=== PATIENT | female | born 1945 | race Caucasian/White ===

== ENCOUNTER 2021-08-07 09:43 | Emergency (ER) | payer MEDICARE, OTHER ==
[~2021-08-07] VITALS: Ht 162.6 cm; Wt 59.0 kg
[2021-08-07 10:00] VITALS: BP 109/67
[2021-08-07 10:51] LABS: Basophils # (auto) 0.1 10 ^3/uL (0-0.2); Basophils % (auto) 0.5 % (0.0-2.0); Eosinophils # (auto) 0.1 10 ^3/uL (0-0.8); Eosinophils % (auto) 0.6 % (0.0-7.0); Hematocrit 40.4 % (36.0-46.0); Hemoglobin 13.4 g/dL (12.2-16.2); Lymphocytes # (auto) 1.8 10 ^3/uL (0.4-5.4); Lymphocytes % (auto) 16.1 % (10.0-50.0); Mean Corpuscular Hemoglobin 29.8 pg (28.0-32.0); Mean Corpuscular Hgb Conc. 33.2 g/dL (32.0-36.0); Neutrophils # (auto) 8.4 10 ^3/uL (1.6-8.6); Neutrophils % (auto) 73.8 % (37.0-80.0); Red Blood Cells 4.48 10^6/uL (4.0-5.20); Red Cell Distribution Width 14.2 % (11.8-14.3); White Blood Cell 11.4 10^3/uL (4.4-10.8)
[2021-08-07] MEDS ORDERED: KETOROLAC TROMETH 30 MG/ML 1ML VIAL IM ONE (11:00)
[2021-08-07] MEDS ORDERED: methylPREDNISolone SOD SUCC 125 MG/2 ML VL IM ONE (11:00)
[2021-08-07 11:07] LABS: BUN/Creatinine Ratio 20.5; Calcium 8.9 mg/dL (8.5-10.1); Potassium 4.2 mmol/L (3.5-5.1); Uric Acid 4.3 mg/dL (2.6-6.0)
[2021-08-07] MEDS ORDERED: INDO50CA82 PO (11:33)
[2021-08-07] MEDS ORDERED: PRED20TA2 PO (11:33)
== END 2021-08-07 11:42 | disposition home or self-care (01) ==
LOC: ER 09:43
DX: M10.9 Gout, unspecified (principal); M19.042 Primary osteoarthritis, left hand; E03.9 Hypothyroidism, unspecified; E78.5 Hyperlipidemia, unspecified; Z79.899 Other long term (current) drug therapy
CPT/HCPCS: 36415; 73130; 80048; 84550; 85025; 96372; 99284; J1885; J2930